=== PATIENT | female | born 1995 | race Asian ===

== ENCOUNTER 2023-10-29 07:12 | Outpatient (CLI) | payer OTHER, SELFPAY ==
--- NOTE | 2023-10-29 07:15 | CRLHL7_ITS ---
For Patients: As a result of the Century Cures Act, medical imaging exams and procedure reports are released immediately into your electronic medical record. You may view this report before your referring provider. If you have questions, please contact your health care provider. OB ULTRASOUND CLINICAL HISTORY: anatomy. STEFANIE by US: 03/14/2024. GA: 20 w, 3 d. FINDINGS: position: Breech. Cervix: Visualized. Technique: Transabdominal. Length of closed cervix: 3.7 cm. Placenta/cord: Posterior. Technique: Transabdominal. Placenta tip to internal OS: 3.5 cm. Umbilical Cord: 3-vessel cord. Placenta insertion: Central. Amniotic Fluid: 5.0 cm SDP (greater than/equal to: 2- less than 8 cm). SURVEY: Observed Structures Calvarium/Spine: Cerebellum: 2.0 cm, 20 w 0 d. Cisterna Magna: 4.7 mm. Nuchal Fold: 5.7 mm. Lateral Ventricle: 6.5 mm. CSP: Yes. Midline Falx: Yes. Choroid Plexus: Yes. Spine: Yes. Abdomen: Stomach: Yes. Abd Cord Insertion: Yes. Urinary Bladder: Yes. Kidneys: Yes. Diaphragm: Yes. Face: Nose/lips: Yes. Orbital view: Yes. Profile: Yes. Limbs: Upper Extremities: Yes. Lower Extremities: Yes. Hands: Yes. Feet: Yes. Vascular: Four-Chamber Heart: Yes. LVOT: Yes. RVOT: Yes. 3VV: Yes. 3VTV: Yes. BPD: 4.5 cm. 19 w 4 d, 17 percent. HC: 17.2 cm. 19 w 6 d, 17 percent. AC: 15.4 cm. 20 w 4 d, 49 percent. FL: 3.3 cm. 20 w 2 d, 35 percent. FL/AC: 21.31 percent. HC/AC Ratio: 1.12. Heart rate: 147 beats per minute. age by this US: 20 w, 0 d. STEFANIE by this US: 03/17/2024. EFW: 347.13 g. Weight: 12 oz. Percentile by STEFANIE: 40 percent. Left renal pelvis is mildly dilated measuring 4 mm. IMPRESSION: Single live intrauterine gestation. No gross anomaly is visualized. The left renal pelvis is mildly dilated measuring 4 mm. Ivania Mcginnis M.D. Diagnostic/Breast Radiologist [email or web address] ROSY/Dictated by: Ivania Mcginnis MD @ 10/30/2023 9:06:00 PM (Electronically Signed)
== END 2023-10-29 07:13 | disposition home or self-care (01) ==
PROVIDERS: Visit Provider Physician Assistant
DX: Z34.92 Encounter for supervision of normal pregnancy, unspecified, second trimester (principal); Z3A.20 20 weeks gestation of pregnancy
CPT/HCPCS: 76805

== ENCOUNTER 2023-12-31 08:45 | Outpatient (CLI) | payer OTHER, SELFPAY | END 2023-12-31 08:46 | disposition home or self-care (01) | LOC: NFLDREF 08:46 | PROVIDERS: Visit Provider Obstetrics & Gynecology | DX: Z34.92 Encounter for supervision of normal pregnancy, unspecified, second trimester (principal) | CPT/HCPCS: 86592; 86787 ==

== ENCOUNTER 2024-01-08 07:41 | Outpatient (CLI) | payer OTHER, SELFPAY | END 2024-01-08 07:42 | disposition home or self-care (01) | LOC: NFLDREF 01-09 11:14 | PROVIDERS: Visit Provider Obstetrics & Gynecology | DX: Z34.03 Encounter for supervision of normal first pregnancy, third trimester (principal) | CPT/HCPCS: 82951; 82952 ==

== ENCOUNTER 2024-01-21 09:22 | Outpatient (CLI) | payer OTHER, SELFPAY ==
--- NOTE | 2024-01-21 09:15 | US_ITS ---
Patient: JARED FONSECA Facility:?[facility] Patient ID:?[id number] Site Patient ID:?[id number]. Site :?[id number] Study:?US-OB Pelvis OB F/U LT RENAL PELVIS-01/21/2024 10:01:51 AM Ordering Physician:?EMMA SAGE M.D. Final Report: INDICATION: F/U mild left renal pelvis dilation COMPARISON: 10/29/2023 TECHNIQUE: Real-time hahn-scale imaging of the pelvis was performed. FINDINGS: Left renal pelvis measures 3.2 millimeters. position is zara breech. Normal amniotic fluid with single deepest pocket 4.5 cm. Posterior placenta. heart rate 142 beats per minute. IMPRESSION: Left renal pelvis measures 3.2 millimeters, considered normal. Dictated by Anthony Plata MD @ 01/22/2024 5:36:01 AM Signed by:?Anthony Plata MD @01/22/2024 5:36:01 AM (Electronic Signature)
== END 2024-01-21 09:23 | disposition home or self-care (01) ==
PROVIDERS: Visit Provider Obstetrics & Gynecology
DX: O35.EXX0 Maternal care for other (suspected) fetal abnormality and damage, fetal genitourinary anomalies, not applicable or unspecified (principal)
CPT/HCPCS: 76816

== ENCOUNTER 2024-02-18 09:45 | Outpatient (CLI) | payer OTHER, SELFPAY ==
--- OUTSIDE RECORDS SUMMARY | 2024-02-25 08:00 | XMS_ITS | Data Portability ---
Author Name Unknown Address [address] [place] [address] Phone [phone] Organization [facility] NURSING SERVICE DIRECTOR, [id number] Address [address] [address] Assessment Encounter Date Assessment Date Assessment LastModified [...] of subsequent test results to the patient [email or web address] Not available 07/31/2023 15:35:33 Plan of Treatment Reminders Order Date Submit Date Provider Last Modified By Organization Details Last Modified Time Details Appointments None recorded. Lab aneuploidy risk, chromosome specific circulating cell free (ccf) DNA, maternal serum [address], [address], [place], [address], 3 09:34:43 venipunctur e [email or web address], [address], [place], [address], 3 12:53:51 CT + NG DNA, PCR, unspecified specimen [address], [address], [place], [address], 3 13:40:44 CBC w/ diff 2022 [facility], [address], [address], [place], [address], 3 13:40:46 culture, urine 2022 [facility], [address], [address], [place], [address], 3 06:55:27 hepatitis C Ab, qual, IA, serum or plasma 2022 [facility], [address], [address], [place], [address], 13:40:42 mumps igg Ab, serum 2022 [facility], [address], [address], [place], [address], 3 06:55:26 HBsAg (hepatitis B surface Ag), serum 2022 [facility], [address], [address], [place], [address], 3 06:55:25 HIV 1+2 AB + HIV 1 p24 Ag, qualitative immunoassay , serum 2022 [facility], [address], [address], [place], [address], 3 12:12:19 type + screen, blood 2022 [facility], [address], [address], [place], [address], 3 12:12:20 RPR (rapid plasma reagin), serum 2022 [facility], [address] [facility] [address], [address], [place], [address], 12:12:18 Referral None recorded. Procedures None recorded. Surgeries None recorded. Imaging US, obstetric, 1st trimester 2022 [email or web address], [address], [place], [address], 16:04:11 Medication Orders Lexapro 20 mg tablet 2022 [email or web address] [id number], [address], [place], [address], 14:39:51 Patient TargetsNo targets recorded. Patient Instructions Encounter Date Encounter Id Patient Instructions Last Modified By Organization Details Last Modified Time 07/31/2023 [id number] Instructions: Avoid illicit drugs/ETOH Discussed Hospital and [...] reagin nonrea ctive nonrea ctive Not Available [address], [place], [address], 08/01/2023 12:12:18 07/31/20 23 07/31/2023 HIV ANTIG EN ANTIB KADEN COMBO CASCA DE HIV antigen antibody combo nonrea ctive nonrea ctive Not Available [address], [place], [address], 08/01/2023 12:12:19 07/31/20 23 07/31/2023 ABO RH TYPE AND SCREE N specimen expiration date [id number] 00 Not Available [address], [place], [address], 08/01/2023 12:12:20 07/31/20 23 07/31/2023 ABO RH TYPE AND SCREE N ABO Rh(D) O pos Not Available [address], [place], [address], 08/01/2023 12:12:20 07/31/20 23 07/31/2023 ABO RH TYPE AND SCREE N antibody screen negati ve negati ve Not Available [address], [place], [address], 08/01/2023 12:12:20 07/31/20 23 07/31/2023 HEPAT ITIS C ANTIB KADEN hepatitis C antibody nonrea ctive nonrea ctive Not Available [address], [place], [address], 08/01/2023 13:40:42 07/31/20 23 07/31/2023 GC/CH LAMYD IA BY PCR chlamydia trachomatis negati ve negati ve Not Available [address], [place], [address], 08/01/2023 13:40:44 07/31/20 23 07/31/2023 GC/CH LAMYD IA BY PCR neisseria gonorrhoeae negati ve negati ve Not Available [address], [place], [address], 08/01/2023 13:40:44 07/31/2007/31/2023 CBC WITH PLATE LETS WBC count 14.2 10e3/ uL 4.0-11 .0 high Not Available [address], [place], [address], 08/01/2023 13:40:45 07/31/20 23 07/31/2023 CBC WITH PLATE LETS RBC count 4.75 10e6/ uL 3.80-5 .20 Not Available [address], [place], [address], 08/01/2023 13:40:45 07/31/2007/31/2023 CBC WITH PLATE LETS hemoglobin 13.9 g/dL 11.7-1 5.7 Not Available [address], [place], [address], 08/01/2023 13:40:45 07/31/2007/31/2023 CBC WITH PLATE LETS hematocrit 41.5 % 35.0-4 7.0 Not Available [address], [place], [address], 08/01/2023 13:40:45 07/31/2007/31/2023 CBC WITH PLATE LETS MCV 87 fL 78-100 Not Available [address], [place], [address], 08/01/2023 13:40:45 07/31/20 23 07/31/2023 CBC WITH PLATE LETS MCH 29.3 pg 26.5-3 3.0 Not Available [address], [place], [address], 08/01/2023 13:40:45 07/31/20 23 07/31/2023 CBC WITH PLATE LETS MCHC 33.5 g/dL 31.5-3 6.5 Not Available [address], [place], [address], 08/01/2023 13:40:45 07/31/20 23 07/31/2023 CBC WITH PLATE LETS RDW 12.9 % 10.0-1 5.0 Not Available [address], [place], [address], 08/01/2023 13:40:45 07/31/2007/31/2023 CBC WITH PLATE LETS platelet count 335 10e3/ uL 150-45 0 Not Available [address], [place], [address], 08/01/2023 13:40:45 07/31/2007/31/2023 CBC WITH PLATE LETS % neutrophils 70 % Not Available [address], [place], [address], 08/01/2023 13:40:45 07/31/2007/31/2023 CBC WITH PLATE LETS % lymphocytes 24 % Not Available [address], [place], [address], 08/01/2023 13:40:45 07/31/2007/31/2023 CBC WITH PLATE LETS % monocytes 5 % Not Available [address], [place], [address], 08/01/2023 13:40:45 07/31/2007/31/2023 CBC WITH PLATE LETS mids % (monos, eos, basos) Not Available [address], [place], [address], 08/01/2023 13:40:45 07/31/2007/31/2023 CBC WITH PLATE LETS % eosinophils 0 % Not Available [address], [place], [address], 08/01/2023 13:40:45 07/31/20 23 07/31/2023 CBC WITH PLATE LETS % basophils 1 % Not Available [address], [place], [address], 08/01/2023 13:40:45 07/31/20 23 07/31/2023 CBC WITH PLATE LETS % immature granulocytes 0 % Not Available [address], [place], [address], 08/01/2023 13:40:45 07/31/20 23 07/31/2023 CBC WITH PLATE LETS NRBCs per 100 WBC 0 /100 <1 Not Available [address], [place], [address], 08/01/2023 13:40:45 07/31/20 23 07/31/2023 CBC WITH PLATE LETS absolute neutrophils 10.0 10e3/ uL 1.6-8. 3 high Not Available [address], [place], [address], 08/01/2023 13:40:45 07/31/20 23 07/31/2023 CBC WITH PLATE LETS absolute lymphocytes 3.5 10e3/ uL 0.8-5. 3 Not Available [address], [place], [address], 08/01/2023 13:40:45 07/31/20 23 07/31/2023 CBC WITH PLATE LETS absolute monocytes 0.7 10e3/ uL 0.0-1. 3 Not Available [address], [place], [address], 08/01/2023 13:40:45 07/31/20 23 07/31/2023 CBC WITH PLATE LETS mids absolute (monos, eos, basos) Not Available [address], [place], [address], 08/01/2023 13:40:45 07/31/20 23 07/31/2023 CBC WITH PLATE LETS absolute eosinophils 0.0 10e3/ uL 0.0-0. 7 Not Available [address], [place], [address], 08/01/2023 13:40:45 07/31/20 23 07/31/2023 CBC WITH PLATE LETS absolute basophils 0.1 10e3/ uL 0.0-0. 2 Not Available [address], [place], [address], 08/01/2023 13:40:45 07/31/20 23 07/31/2023 CBC WITH PLATE LETS absolute immature granulocytes 0.0 10e3/ uL <=0.4 Not Available [address], [place], [address], 08/01/2023 13:40:45 07/31/20 23 07/31/2023 CBC WITH PLATE LETS absolute NRBCs 0.0 10e3/ uL Not Available [address], [place], [address], 08/01/2023 13:40:45 07/31/20 23 07/31/2023 HEPAT ITIS B SURFA CE ANTIG EN hepatitis B surface antigen nonrea ctive nonrea ctive Not Available [address], [place], [address], 08/02/2023 06:55:25 07/31/20 23 07/31/2023 RUBEL LA ANTIB KADEN IGG QUANT rubella antibody IgG quant 9.56 index <0.90 Not Available [address], [place], [address], 08/02/2023 06:55:26 07/31/20 23 07/31/2023 RUBEL LA ANTIB KADEN IGG QUANT rubella antibody IgG positi ve Not Available [facility] [address] [facility] [address], [place], [address], 08/02/2023 06:55:26 07/31/20 23 07/31/2023 URINE CULTU RE urine culture see result s below Not Available [facility] [address] [facility] [address], [place], [address], 08/02/2023 06:55:27 07/31/20 23 07/31/2023 US, obste tric, 1st trime ster No observ ation record ed. [email or web address] Maria Del Rosario [address], [place], [address], 08/02/2023 11:30:55 Result Notes None recorded. Problems Name Status Onset Date Resolution Date Notes Provider Name and Address Organization Details Recorded Time Completed 023 10/30/2023 Tayler Greenfiel d null, [place] - [facility] NURSING SERV[facility] DIRECT[facility] 4 10:32:39 Administration of influenza vaccine Completed 023 Tayler Greenfiel d null, [place] - [facility]SING SERV[facility] DIRECT[facility] 4 10:32:35 Generalized anxiety disorder Completed stable on lexapro Tayler Greenfiel d null, [place] - [facility]URSING SERVICE DIRECT[facility] 4 10:32:35 Problem Notes None recorded. Procedures Surgical History Date Name Laterality Status Provider Name and Address Organization Details Recorded Time 3 extraction of wisdom tooth completed Belen Pond null, [place] - [facility] NURSING SERVICE DIRECTOR 07/31/2023 14:08:03 Imaging Results Imaging Date Name Status LastModified by Organiz ation Details LastModified Time 07/31/2023 US, obstetric, 1st trimester completed [email or web address] Maria Del [address]ario [address], [place], [address], 08/02/2023 11:30:55 Procedure Notes None recorded. Medical [...] Address Organization Details Last Updated DateTime 07/31/2023 83280.41 573 g 20.8 kg/m2 167.64 cm 102 mm[Hg] 60 mm[Hg] Belenyamile Butchergoldy [facility] 14:19:02 Date Recorded Body weight Systolic blood pressure Diastolic blood pressure Provider Name and Address Organization Details Last Updated DateTime 08/20/2023 53529.4157 3 g 108 mm[Hg] 70 mm[Hg] [facility] 08/20/2023 11:05:25 Date Recorded Body weight Systolic blood pressure Diastolic blood pressure Provider Name and Address Organization Details Last Updated DateTime 09/17/2023 05684.3189 44 g 100 mm[Hg] 72 mm[Hg] [facility] 09/17/2023 11:13:04 Social History Question Answer Notes [...] preservative free, quadrivalent 07/31/2023 completed KELVIN CALVILLO- [address] [facility],[address], [place], [address], [facility] NURSING SERVICE DIRECTOR 07/31/2023 15:30:45 Past Encounters Encounter ID Performer Location Encounter Start Date Encounter Closed Date Diagnosis/Indication Diagnosis SNOMED-CT Code [id number] HERNAN PINTO MD [id number] [facility] [address] [facility], [address] [place] [address] 07/31/2023 13:22:22 07/31/2023 14:04:18 Finding of viability of [id number] Gestation period, 7 weeks 15416732 [id number] NELIA DE LA PAZ RAYNA- [id number] [facility] [address] [facility], [address] [place] [address] 07/31/2023 14:03:20 07/31/2023 15:45:03 Routine care 636391267 Generalize d anxiety disorder 15354967 Intrauteri ne 04678272 Administra tion of influenza vaccine [id number] [place] RAYNA [id number] [facility] [address] [facility], [address] [address] 08/20/2023 10:55:35 08/20/2023 11:35:15 Gestation period, 10 weeks 95259895 screening [id number] [id number] [address] [facility], [address] [address] 09/17/2023 10:54:08 09/17/2023 11:26:26 Gestation period, 14 weeks 69613056 Health Concerns Section Related Observation LastModified by Organization Detai ls LastModified Time None Recorded Concern Status LastModified by Organization Details LastModified Time None Recorded Advance Directives Directive None Recorded Payers Encounter Date Sequence Insurance Name Policy Number Policy Marie Covered Member ID Marie Member ID Guarantor Name 09/17/2023 1 PREFERREDONE (PPO) [id number] [employer] [id number] Josselin Pride 08/20/2023 1 PREFERREDONE (PPO) [id number] [employer] [id number] Josselin Pride 07/31/2023 1 PREFERREDONE (PPO) [id number] [employer] [id number] Josselin Pride 07/31/2023 1 PREFERREDONE (PPO) [id number] [employer] [id number] Josselin Villagomez Pride Notes Date Note Type [...] is based on her ultrasound. She is 3epl1lyhk gestation today. Since her LMP she has [...] discussed with patient. NELIA DE LA PAZ, [facility] [address] [facility],[address], [place], [address], [place] - [facility] NURSING SERVICE DIRECTOR 07/31/2023 15:40:08 OBGyn Episode Ob Episode Information Episode Created Date Number of Fetuses Patient Bloodtype Patient rh Status Prepregnancy Weight lbs Domestic Partner Domestic Partner Phone Father Name Probation Officer Status 07/31/20 23 1 O Positive 129 Mele Camacho CLOSED Fetus Data First Name Last Name Admitted to NICU Weight (g) Sex Living Outcome Pediatric Complications Fetus ID Race Codes Race Delivery Type [id number] Problems Problem Notes unsure LMP, dated by ultraso undspouse is ED physicianflu shot done, covid booster discussed Problem Name Start Date End Date Resolution Snomed Code Not e Administration of influenza vaccine 07/31/2023 [id number] Generalized anxiety disorder 40862603 stable on lexap ro Heriberto Calculation Initial [...] Date Ultra Sound Latest Days Gestation 0 [email or web address] 07/31/2023 03/13/20 24 0 Pre-paddy Flowsheet Flowsheet [...] And Infection History Question Response Note Thalassemia (Estonian, Northern Irish, Mediterranean, Or Background): MCV < 80 false [...] 1 Diabetes , PKU) false Kareem-Sachs (eg, Sabianism, Cajun, Uzbek-[place]) f alse Other Infection History false Villalba's Chorea false Cystic Fibrosis false Recurrent Loss, [...] Comments Patient transferr ed on 10/19/23 to [facility] Billed Antepartu m visits per guideline s. Discharge Information Feeding Method Contraceptive Method Maternal HG B and HCT Levels
== END 2024-02-18 09:46 | disposition home or self-care (01) ==
LOC: NFLDREF 02-25 07:58
PROVIDERS: Visit Provider Obstetrics & Gynecology
DX: Z34.93 Encounter for supervision of normal pregnancy, unspecified, third trimester (principal)
CPT/HCPCS: 87081; 87653

== ENCOUNTER 2024-02-21 08:20 | Outpatient (CLI) | payer OTHER, SELFPAY ==
[2024-02-21] VITALS (7 sets, daily range): PULSE 74–94; TEMP 36.6; O2SAT 100
--- OUTSIDE RECORDS SUMMARY | 2024-02-21 08:23 | XMS_ITS | Data Portability ---
Author Name Unknown Address [address] [place] [address] Phone [phone] Organization [facility] [employer]IVER, [id number] Address [address] [address] Assessment Encounter Date Assessment Date Assessment LastModified by Organization Details LastModified Time 07/31/2023 07/31/2023 I spent a total of 35 minutes providing care for this patient including: preparing to see the patient, obtaining a medical history, completing a medically appropriate physical exam, completing documentation of visit information and plans in the EMR, counseling the patient and/or caregiver regarding her diagnosis, treatment options and follow up plans, as well as any necessary communication of subsequent test results to the patient [email or web address] Not available 07/31/2023 15:35:33 Plan of Treatment Reminders Order Date Submit Date Provider Last Modified By Organization Details Last Modified Time Details Appointments None recorded. Lab aneuploidy risk, chromosome specific circulating cell free (ccf) DNA, maternal serum [address], [address], [place], [address], 3 09:34:43 venipunctur e [email or web address], [address], [place], [address], 3 12:53:51 CT + NG DNA, PCR, unspecified specimen [address], [address], [place], [address], 3 13:40:44 CBC w/ diff 2022 [facility], [address], [address], [place], [address], 3 13:40:46 culture, urine 2022 [facility], [address], [address], [place], [address], 3 06:55:27 hepatitis C Ab, qual, IA, serum or plasma 2022 [facility], [address], [address], [place], [address], 13:40:42 mumps igg Ab, serum 2022 [facility], [address], [address], [place], [address], 3 06:55:26 HBsAg (hepatitis B surface Ag), serum 2022 [facility], [address], [address], [place], [address], 3 06:55:25 HIV 1+2 AB + HIV 1 p24 Ag, qualitative immunoassay , serum 2022 [facility], [address], [address], [place], [address], 3 12:12:19 type + screen, blood 2022 [facility], [address], [address], [place], [address], 3 12:12:20 RPR (rapid plasma reagin), serum 2022 [facility], [address], [address], [place], [address], 12:12:18 Referral None recorded. Procedures None recorded. Surgeries None recorded. Imaging US, obstetric, 1st trimester 2022 [email or web address] [id number] [facility], [address], [address], [place], [address], 16:04:11 Medication Orders Lexapro 20 mg tablet 2022 [email or web address] [id number], [address], [place], [address], 14:39:51 Patient TargetsNo targets recorded. Patient Instructions Encounter Date Encounter Id Patient Instructions Last Modified By Organization Details Last Modified Time 07/31/2023 [id number] Instructions: Avoid illicit drugs/ETOH Discussed Hospital and Clinic practice style, provider options and coverage during and after Clinic hours and routine appt intervals. packet and gestational age appropriate pt education materials were provided and discussed. Bleeding, pain and complications of were discussed. Discussed diagnostic and screening tests with patient per ACOG guidelines appropriate for age and history - including genetic consult, Amniocentesis, CVS, NIPT, First trimester screen, Quad screen, AFP, Level II US or anatomy US, and Carrier screening. Reviewed all current prescription drug use. Discontinue the use of all non-medicinal drugs and chemicals. Encouraged breast feeding. Nausea and vomiting of was discussed. Patient informed that she and her partner should not travel to Zika infected areas. Referred to www.cdc.gov for up to date recommendations. Return OB visit in 2-4 weeks as instructed. See additional documentation for today's visit in OB Episode. Not available 07/31/2023 14:15:24 Reason for Referral None Reported. Results Created Date Observation Date Name Description Value Unit Range Abnormal Flag LastModifiedBy Organization Detail LastModifiedTime 07/31/20 23 07/31/2023 RAPID PLASM A REAGI N WITH REFLE X TO TITER AND TREPO NEMA ABS rapid plasma reagin nonrea ctive nonrea ctive Not Available [address], [place], [address], 08/01/2023 12:12:18 07/31/20 23 07/31/2023 HIV ANTIG EN ANTIB KADEN COMBO CASCA DE HIV antigen antibody combo nonrea ctive nonrea ctive Not Available [address], [place], [address], 08/01/2023 12:12:19 07/31/20 23 07/31/2023 ABO RH TYPE AND SCREE N specimen expiration date [id number] 00 Not Available [address], [place], [address], 08/01/2023 12:12:20 07/31/20 23 07/31/2023 ABO RH TYPE AND SCREE N ABO Rh(D) O pos Not Available [address], [place], [address], 08/01/2023 12:12:20 07/31/20 23 07/31/2023 ABO RH TYPE AND SCREE N antibody screen negati ve negati ve Not Available [address], [place], [address], 08/01/2023 12:12:20 07/31/20 23 07/31/2023 HEPAT ITIS C ANTIB KADEN hepatitis C antibody nonrea ctive nonrea ctive Not Available [address], [place], [address], 08/01/2023 13:40:42 07/31/20 23 07/31/2023 GC/CH LAMYD IA BY PCR chlamydia trachomatis negati ve negati ve Not Available [address], [place], [address], 08/01/2023 13:40:44 07/31/20 23 07/31/2023 GC/CH LAMYD IA BY PCR neisseria gonorrhoeae negati ve negati ve Not Available [address], [place], [address], 08/01/2023 13:40:44 07/31/2007/31/2023 CBC WITH PLATE LETS WBC count 14.2 10e3/ uL 4.0-11 .0 high Not Available [address], [place], [address], 08/01/2023 13:40:45 07/31/20 23 07/31/2023 CBC WITH PLATE LETS RBC count 4.75 10e6/ uL 3.80-5 .20 Not Available [address], [place], [address], 08/01/2023 13:40:45 07/31/2007/31/2023 CBC WITH PLATE LETS hemoglobin 13.9 g/dL 11.7-1 5.7 Not Available [address], [place], [address], 08/01/2023 13:40:45 07/31/2007/31/2023 CBC WITH PLATE LETS hematocrit 41.5 % 35.0-4 7.0 Not Available [address], [place], [address], 08/01/2023 13:40:45 07/31/2007/31/2023 CBC WITH PLATE LETS MCV 87 fL 78-100 Not Available [address], [place], [address], 08/01/2023 13:40:45 07/31/20 23 07/31/2023 CBC WITH PLATE LETS MCH 29.3 pg 26.5-3 3.0 Not Available [address], [place], [address], 08/01/2023 13:40:45 07/31/20 23 07/31/2023 CBC WITH PLATE LETS MCHC 33.5 g/dL 31.5-3 6.5 Not Available [address], [place], [address], 08/01/2023 13:40:45 07/31/20 23 07/31/2023 CBC WITH PLATE LETS RDW 12.9 % 10.0-1 5.0 Not Available [address], [place], [address], 08/01/2023 13:40:45 07/31/2007/31/2023 CBC WITH PLATE LETS platelet count 335 10e3/ uL 150-45 0 Not Available [address], [place], [address], 08/01/2023 13:40:45 07/31/2007/31/2023 CBC WITH PLATE LETS % neutrophils 70 % Not Available [address], [place], [address], 08/01/2023 13:40:45 07/31/2007/31/2023 CBC WITH PLATE LETS % lymphocytes 24 % Not Available [address], [place], [address], 08/01/2023 13:40:45 07/31/2007/31/2023 CBC WITH PLATE LETS % monocytes 5 % Not Available [address], [place], [address], 08/01/2023 13:40:45 07/31/2007/31/2023 CBC WITH PLATE LETS mids % (monos, eos, basos) Not Available [address], [place], [address], 08/01/2023 13:40:45 07/31/2007/31/2023 CBC WITH PLATE LETS % eosinophils 0 % Not Available [address], [place], [address], 08/01/2023 13:40:45 07/31/20 23 07/31/2023 CBC WITH PLATE LETS % basophils 1 % Not Available [address], [place], [address], 08/01/2023 13:40:45 07/31/20 23 07/31/2023 CBC WITH PLATE LETS % immature granulocytes 0 % Not Available [address], [place], [address], 08/01/2023 13:40:45 07/31/20 23 07/31/2023 CBC WITH PLATE LETS NRBCs per 100 WBC 0 /100 <1 Not Available [address], [place], [address], 08/01/2023 13:40:45 07/31/20 23 07/31/2023 CBC WITH PLATE LETS absolute neutrophils 10.0 10e3/ uL 1.6-8. 3 high Not Available [address], [place], [address], 08/01/2023 13:40:45 07/31/20 23 07/31/2023 CBC WITH PLATE LETS absolute lymphocytes 3.5 10e3/ uL 0.8-5. 3 Not Available [address], [place], [address], 08/01/2023 13:40:45 07/31/20 23 07/31/2023 CBC WITH PLATE LETS absolute monocytes 0.7 10e3/ uL 0.0-1. 3 Not Available [address], [place], [address], 08/01/2023 13:40:45 07/31/20 23 07/31/2023 CBC WITH PLATE LETS mids absolute (monos, eos, basos) Not Available [address], [place], [address], 08/01/2023 13:40:45 07/31/20 23 07/31/2023 CBC WITH PLATE LETS absolute eosinophils 0.0 10e3/ uL 0.0-0. 7 Not Available [address], [place], [address], 08/01/2023 13:40:45 07/31/20 23 07/31/2023 CBC WITH PLATE LETS absolute basophils 0.1 10e3/ uL 0.0-0. 2 Not Available [address], [place], [address], 08/01/2023 13:40:45 07/31/20 23 07/31/2023 CBC WITH PLATE LETS absolute immature granulocytes 0.0 10e3/ uL <=0.4 Not Available [address], [place], [address], 08/01/2023 13:40:45 07/31/20 23 07/31/2023 CBC WITH PLATE LETS absolute NRBCs 0.0 10e3/ uL Not Available [address], [place], [address], 08/01/2023 13:40:45 07/31/20 23 07/31/2023 HEPAT ITIS B SURFA CE ANTIG EN hepatitis B surface antigen nonrea ctive nonrea ctive Not Available [address], [place], [address], 08/02/2023 06:55:25 07/31/20 23 07/31/2023 RUBEL LA ANTIB KADEN IGG QUANT rubella antibody IgG quant 9.56 index <0.90 Not Available [address], [place], [address], 08/02/2023 06:55:26 07/31/20 23 07/31/2023 RUBEL LA ANTIB KADEN IGG QUANT rubella antibody IgG positi ve Not Available [facility] [address] [facility] [facility] [address], [place], [address], 08/02/2023 06:55:26 07/31/20 23 07/31/2023 URINE CULTU RE urine culture see result s below Not Available [facility] [address], [place], [address], 08/02/2023 06:55:27 07/31/20 23 07/31/2023 US, obste tric, 1st trime ster No observ ation record ed. [email or web address] Maria Del [address], [place], [address], 08/02/2023 11:30:55 Result Notes None recorded. Problems Name Status Onset Date Resolution Date Notes Provider Name and Address Organization Details Recorded Time Completed 023 10/30/2023 Tayler Greenfiel d null, [place] - [facility] [employer] 4 10:32:39 Administration of influenza vaccine Completed 023 Tayler Greenfiel d null, [place] - [facility] [employer] 4 10:32:35 Generalized anxiety disorder Completed stable on lexapro Tayler Greenfiel d null, [place] - [facility] [employer] 4 10:32:35 Problem Notes None recorded. Procedures Surgical History Date Name Laterality Status Provider Name and Address Organization Details Recorded Time 3 extraction of wisdom tooth completed Belen Pond null, [place] - [facility] [employer] 07/31/2023 14:08:03 Imaging Results Imaging Date Name Status LastModified by Organiz ation Details LastModified Time 07/31/2023 US, obstetric, 1st trimester completed [email or web address] Maria [address], [place], [address], 08/02/2023 11:30:55 Procedure Notes None recorded. Medical Equipment None Reported. Allergies No known drug allergies Medications Name Sig Start Date Stop Date Status Note LastModified by Organization Details LastModified Time escitalopram 20 mg tablet Take 1 tablet every day by oral route. active Not Available Not Available No t Available Vitamin active Not Available Not Available Not Available Vitals Date Recorded Body weight Body mass index (BMI) Body height Systolic blood pressure Diastolic blood pressure Provider Name and Address Organization Details Last Updated DateTime 07/31/2023 08189.41 573 g 20.8 kg/m2 167.64 cm 102 mm[Hg] 60 mm[Hg] Belenyamile Butchergoldy ziegler [facility] [employer] 14:19:02 Date Recorded Body weight Systolic blood pressure Diastolic blood pressure Provider Name and Address Organization Details Last Updated DateTime 08/20/2023 47289.4157 3 g 108 mm[Hg] 70 mm[Hg] Sherita ziegler [facility] [employer] 08/20/2023 11:05:25 Date Recorded Body weight Systolic blood pressure Diastolic blood pressure Provider Name and Address Organization Details Last Updated DateTime 09/17/2023 28385.3189 44 g 100 mm[Hg] 72 mm[Hg] Sherita ziegler [facility] [employer] 09/17/2023 11:13:04 Social History Question Answer Notes LastModified by Organizat ion Details LastModified Time What Is Your Relationship Status? Information not available 07/31/2023 Sex: Female Functional Status None recorded. Mental Status None recorded. Family History Relationship Description Onset Age of this Age Resolved Age Notes Paternal Grandfather Malignant neoplastic disease Unsure of type Medical History No medical history recorded. Gynecological History Statement/Question Response Date of Last Pap Smear Age at Menarche: 11 Date of LMP 06/06/2023 Obstetrics History GPAL:G 1 P 0 0 0 0 Immunizations Vaccine Type Date Status Provider Name and Address Organization Details Recorded Time Influenza, injectable, MDCK, preservative free, quadrivalent 07/31/2023 completed KELVIN CALVILLO- [address] [facility],[address], [place], [address], [facility] PUBLIC [employer]IVER 07/31/2023 15:30:45 Past Encounters Encounter ID Performer Location Encounter Start Date Encounter Closed Date Diagnosis/Indication Diagnosis SNOMED-CT Code [id number] HERNAN PINTO MD [id number] [facility] [address] [facility], [address] [place] [address] 07/31/2023 13:22:22 07/31/2023 14:04:18 Finding of viability of [id number] Gestation period, 7 weeks [id number] NELIA DE LA PAZ RAYNA- [id number] [facility] [address] [facility], [address] [place] [address] 07/31/2023 14:03:20 07/31/2023 15:45:03 Routine care 262940355 Generalize d anxiety disorder 19677528 Intrauteri ne 97647057 Administra tion of influenza vaccine [id number] MALCOLM [place] RAYNA [id number] [facility] [address] [facility], [address] [address] 08/20/2023 10:55:35 08/20/2023 11:35:15 Gestation period, 10 weeks 69189474 screening 2433 12780 [id number] [id number] [address] [facility], [address] [address] 09/17/2023 10:54:08 09/17/2023 11:26:26 Gestation period, 14 weeks 26348900 Health Concerns Section Related Observation LastModified by Organization Detai ls LastModified Time None Recorded Concern Status LastModified by Organization Details LastModified Time None Recorded Advance Directives Directive None Recorded Payers Encounter Date Sequence Insurance Name Policy Number Policy Marie Covered Member ID Marie Member ID Guarantor Name 09/17/2023 1 PREFERREDONE (PPO) [id number] [employer] [id number] Josselin Pride 08/20/2023 1 PREFERREDONE (PPO) [id number] [employer] [id number] Josselin Pride 07/31/2023 1 PREFERREDONE (PPO) [id number] [employer] [id number] Josselin Pride 07/31/2023 1 PREFERREDONE (PPO) [id number] [employer] [id number] Josselin Villagomez Pride Notes Date Note Type Note Provider Name and Address Organization Details Recorded Time 07/31/2023 text/html HPI Notes: New O B Visit This 28 year old with an unsure LMP presents in her first trimester for care. History Since LMP Her last menstrual period was unsure. She reports that her cycles are monthly. Her EDC of 03/13/2024 is based on her ultrasound. She is [id number] gestation today. Since her LMP she has been without significant complaints. She denies emesis, vaginal bleeding and pelvic pain. She denies vaginal itching/burning. In the past 6 months the patient has not traveled to an area affected by Zika, malaria, or TB. Her depression screening PHQ-9 Score was 1 and JOANA-7 was 2. Past Medical History The patient is current on pap smear. Her most recent pap was within the last three years. and was normal. per patient's report. She does not have a history of cryotherapy, LEEP or conization. Her past medical history is non-contributory. History This is her first . Patient is not a candidate for early 1hr GTT. Patient is not a candidate for baby ASA starting at 12 weeks. Patient is interested in aneuploidy screening. Patient may be interested in genetic screening. Social History Since her LMP, she denies the use of alcohol, tobacco, and street drugs. She denies exposure to second had smoke. She reports exercising 2-3x/week. Pt reports caffeine use. The patient feels safe at home. If blood products are required, patient will accept treatment. RIsks/benefits of accepting or declining treatment discussed with patient. NELIA DE LA PAZ, [facility] [address] [facility],[address], [place], [address], [place] - [facility] [employer] 07/31/2023 15:40:08 OBGyn Episode Ob Episode Information Episode Created Date Number of Fetuses Patient Bloodtype Patient rh Status Prepregnancy Weight lbs Domestic Partner Domestic Partner Phone Father Name Manager Rail Status 07/31/20 23 1 O Positive 129 Mele Camacho CLOSED Fetus Data First Name Last Name Admitted to NICU Weight (g) Sex Living Outcome Pediatric Complications Fetus ID Race Codes Race Delivery Type [id number] Problems Problem Notes unsure LMP, dated by ultraso undspouse is ED physicianflu shot done, covid booster discussed Problem Name Start Date End Date Resolution Snomed Code Not e Administration of influenza vaccine 07/31/2023 [id number] Generalized anxiety disorder 62201605 stable on lexap ro Heriberto Calculation Initial Heriberto Date Initial Exam Date Initial Exam Provider Initial Ultrasound Date Last Menstrual Period Date Ultra Sound Weeks Gestation 03/12/2024 07/31/2023 06/06/2023 0 Eighteen To Twenty Week Heriberto Update Ultra Sound Date Fundal Height At Umbil Quickening Date Ultra Sound Latest Weeks Gestation Final Heriberto Confirmed By Final Heriberto Confirmed Date Final Heriberto Date Ultra Sound Latest Days Gestation 0 [email or web address] 07/31/2023 03/13/20 24 0 Pre-paddy Flowsheet Flowsheet Date 07/31/2023 Man Score Blood Edema Fundus Height Fundus Units Glucose Ketones Leukocytes Nitrite Labor Signs Protein Cervic Dilation Cervic Effacement Cervic Station Type Weight in lbs BP Diastolic BP Location Tested BP Systolic BP Type Fetus Heart Rate Present Fetus Movement Comments Flowsheet Date 07/31/2023 Man Score Blood Edema Fundus Height Fundus Units Glucose Ketones Leukocytes Nitrite Labor Signs Protein Cervic Dilation Cervic Effacement Cervic Station none neg Type Weight in lbs BP Diastolic BP Location Tested BP Systolic BP Type 60 R arm 102 sitting Fetus Heart Rate Present Fetus Movement Comments New pt, NOB. Unsure LMP, kno ws it was sometime the week prior to their wedding on 06/09. D/w LK, will use u/s dating. Feeling well, no VB, N/V. Some fatigue. Folder reviewed. Pap current. Plan MT21. Flu shot today. Flowsheet Date 08/20/2023 Man Score Blood Edema Fundus Height Fundus Units Glucose Ketones Leukocytes Nitrite Labor Signs Protein Cervic Dilation Cervic Effacement Cervic Station none none neg Type Weight in lbs BP Diastolic BP Location Tested BP Systolic BP Type 70 108 Fetus Heart Rate Present A Present Fetus Movement Comments 1. reviewed NOB labs. 2. hernando ires MT21, counseling done and drawn. When to expect results disucssed. 3. struggling with some constipation, miralax and dietary choices reviewed. 4. Denies VB/LOF/ctxn. Precautions reviewed, next visit 4 weeks. lw Flowsheet Date 09/17/2023 Man Score Blood Edema Fundus Height Fundus Units Glucose Ketones Leukocytes Nitrite Labor Signs Protein Cervic Dilation Cervic Effacement Cervic Station none none neg Type Weight in lbs BP Diastolic BP Location Tested BP Systolic BP Type 72 100 Fetus Heart Rate Present A Present Fetus Movement Comments 1. feeling well, no concerns . 2. flu shot done, has not had covid booster yet - discussed. 3. reviewed MT21 results. 4. denies VB/LOF/ctxn. okay for visit in 3 weeks for FHT check or 6 weeks w/ allison scan. Precautions reviewed. lw Menstrual History Last Menstrual Date Menses Monthly On Bcp Conception Prior Menses Frequency Hcg Plus Date Menarche Onset Age 0806/06/2023 Genetic Screening And Infection History Question Response Note Thalassemia (Occitan, Botswanan, Mediterranean, Or Background): MCV < 80 false Intellectual Disability/Autism false History of HIV false Congenital Heart Defect false Muscular Dystrophy false Sickle Cell Disease Or Trait () false Patient Or Partner Has History Of Genital Herpes false Hemophilia Or Other Blood Disorders false Riley Disease false Patient's Age Will Be 35 Years Or Older At Estim ated Date of Delivery false Maternal Metabolic Disorder (eg, Type 1 Diabetes , PKU) false Kareem-Sachs (eg, Episcopal, Cajun, Mongolian-Kossuth) f alse Other Infection History false [place]'s Chorea false Cystic Fibrosis false Recurrent Loss, Or A Stillbirth false Rash Or Viral Illness Since Last Menstrual Perio d false Live With Someone With TB Or Exposed To TB false If Yes, Was Person Tested For Fragile X? false Prior GBS-infected child false Any Other Genetic History false Previous Hemoglobinopathy Evaluation false History of Hepatitis false Down Syndrome false Other Inherited Genetic Or Chromosomal Disorder false Previous Carrier Screening Test false Patient Or Baby's Father Had A Child With Defects Not Listed Above false Neural Tube Defect (Meningomyelocele, Spina Bifi da, Or Anencephaly) false History Of STD, Gonorrhea, Chlamydia, HPV, Syphi lis false Delivery Information Delivery Date Delivery Type Labor Anesthesia Weeks Gestation Incision Type Labor Labor Length Hrs Delivered By Post Complications Tubal Sterilization Discharge Date Comments Patient transferr ed on 10/19/23 to [facility] Billed Antepartu m visits per guideline s. Discharge Information Feeding Method Contraceptive Method Maternal HG B and HCT Levels
[2024-02-21] MEDS: TERBUTALINE 1 MG/ML INJ 0.25 MG SUBCUT (09:30)
[2024-02-21] MEDS: LACTATED RINGERS 500 ML 500 ML IV (09:47)
--- NOTE | 2024-02-21 11:43 | PM.PROC ---
Procedure Note Time Seen by Provider: 09:00 Date Seen: 02/21/24 Date of procedure: 02/21/24 Will [facility] bill your pro fee for this procedure?: Yes Procedure: I discussed with patient that 3-4% of pregnancies are breech at term.? If there is a concern in for malpresentation, we assessed with ultrasound at 36 weeks.? If the fetus continues to be breech at 36 weeks, she has the option of attempting an external cephalic version at 37 weeks.? We discussed the rationale for doing the procedure at 37 weeks (technically feasible, fetus is term should delivery be indicated, and lower risk of reversion). Contraindication to external cephalic version is anything that is a contraindication to vaginal delivery such as a placenta previa, multiple previous CD etc. Patient doesn?t have any contraindications. The benefit of an external cephalic version is fewer delivery. It is important to know that there is no difference for low APGARs, low umbilical vein pH, and when comparing external cephalic version with subsequent vaginal delivery to planned delivery at term. The risks of external cephalic version: heart rate changes (most common in stabilizes when procedure is discontinued). ?Overall, serious adverse effects are very low, all < 1%.? These include placental abruption, umbilical cord prolapse, rupture of membranes, stillbirth, maternal hemorrhage.? The risk of an emergency delivery is also low. We discussed factors affecting success.? The overall success rate quoted in the literature is 58%.? Factors that her favorable towards a successful external cephalic version are increased parity, transverse or oblique presentation, normal amniotic volume, normal maternal BMI, and posterior placental location. Factors more associated with failure is nulliparity, advanced dilation, weight less than 2500g, anterior placenta, and low station. She will be given terbutaline for tocolysis prior to the procedure.? We discussed that terbutaline has doubled the rate of ECV success.? With regards to anesthesia, neuraxial anesthesia is available to her should she desire. I will be performing an ultrasound prior to the ECV to confirm positioning.? Additionally, if we are to proceed with the external cephalic version we will get a reactive NST prior to proceeding.? During the procedure intermittent ultrasonography will be used to assess for status.? If there is any concern for or maternal well being the procedure will be terminated immediately. After the procedure, regardless of success or not, she and fetus will be monitored for at least 30 minute prior to discharge. Patient does not require RhoGAM as she is Rh positive. Procedure: External cephalic version Procedure Description: PREOPERATIVE DIAGNOSIS: 1. Intrauterine at 37 weeks gestation. 2. Breech presentation. POSTOPERATIVE DIAGNOSIS: 1. Intrauterine at 37 weeks gestation. 2. Breech presentation. Unsuccessful ECV PROCEDURE: 1. Nonstress test. 2. Limited OB ultrasound. 3. External cephalic version. SURGEON: MD Robi [employer] HAND: MD Holly ANESTHESIA: None. COMPLICATIONS: None. FINDINGS: Nonstress test: heart rate baseline 140s beats per minute, moderate variability, 15 x 15 accelerations present, no decelerations, category 1. Limited OB ultrasound: Single, living, intrauterine gestation in a zara breech presentation with the back along the maternal left, grossly normal amniotic fluid volume. PROCEDURE NOTE: A nonstress test was performed, which was reactive and reassuring. A limited OB ultrasound was performed at the bedside to determine position. Findings noted above. Informed consent was obtained for external cephalic version. Terbutaline 0.25 mg was administered to the patient subcutaneously. RN had difficulties finding heart tones when patient was on her back. heart found on bedside ultrasound and confirmed to be in the 140s. External cephalic version was attempted. Dr. Barrera applied upward pressure to the breech and Madeline applied pressure to the vertex, and we attempted to gently coax the fetus in a forward roll in a counter-clockwise direction. This was attempted twice as Josselin was tolerating the procedure well. Unfortunately it was unsuccessful. heart tones were noted to be normal after the two attempts as well. A 3rd attempt was undertaken in a clockwise position with Joseslin's consent. Very little mobility with clockwise rotation. heart tones were noted to be decreased on ultrasound and the procedure was immediately stopped. NST placed with good heart tone recovery. The patient tolerated the procedure well. monitoring for 1 hour after the procedure was continued to be reassuring. heart rate baseline 140s beats per minute, moderate variability, 15 x 15 accelerations present, no decelerations, category 1. Anesthesia: None Condition: stable Disposition: same day discharge. Returned to clinic for discussion of primary delivery. She has an appointment on February,.
--- NOTE | 2024-02-21 11:59 | PC.OBNST ---
NST Note NST Note Start: 02/21/24 08:26 Freq: ONCE Status: Active Protocol: Document 02/21/24 11:51 WK (Rec: 02/21/24 11:58 WK [id number]) NST Note 1 Para (# of births) 0 EDC 03/13/24 Gestational Age In Weeks & Days 37 Weeks & 0 Days Patient Presented with Complaint(s) of Other Other Complaints Here for ECV- Unsuccessful Reactive Yes RN Emma RNC Date 02/21/24 Reactive Yes RN Peter RN Date 02/21/24 OB NST charge Yes Complete NST Note via Write Note Yes The provider's electronic signature indicates the NST is reactive/appropriate for gestational age. *Note to provider: If an addendum is required, open the patient's chart and click on the note under the Nurse/Allied Health tab.
== END 2024-02-21 11:10 | disposition home or self-care (01) ==
LOC: OB OUT 08:22 → OB 08:22
PROVIDERS: Visit Provider Obstetrics & Gynecology
DX: O32.1XX0 Maternal care for breech presentation, not applicable or unspecified (principal); Z3A.37 37 weeks gestation of pregnancy
CPT/HCPCS: 59025; 59412; G0463; J3105; J7120

== ENCOUNTER 2024-02-22 22:03 | Inpatient (IN) | payer OTHER, SELFPAY ==
[2024-02-22] VITALS (13 sets, daily range): BP systolic 128–148; BP diastolic 77–88; PULSE 67–84; RESP 16; TEMP 36.4–37.1; O2SAT 98–99; BMI 25.3
--- OUTSIDE RECORDS SUMMARY | 2024-02-22 19:36 | XMS_ITS | Data Portability ---
Author Name Unknown Address [address] [place] [address] Phone [phone] Organization [facility], [id number] Address [address] [address] Assessment Encounter Date Assessment Date Assessment LastModified [...] of subsequent test results to the patient [email or web address] Not available 07/31/2023 15:35:33 Plan of Treatment Reminders Order Date Submit Date Provider Last Modified By Organization Details Last Modified Time Details Appointments None recorded. Lab aneuploidy risk, chromosome specific circulating cell free (ccf) DNA, maternal serum [address], [address], [place], [address], 3 09:34:43 venipunctur e [email or web address], [address], [place], [address], 3 12:53:51 CT + NG DNA, PCR, unspecified specimen [address], [address], [place], [address], 3 13:40:44 CBC w/ diff 2022 [facility], [address], [address], [place], [address], 3 13:40:46 culture, urine 2022 [facility], [address], [address], [place], [address], 3 06:55:27 hepatitis C Ab, qual, IA, serum or plasma 2022 [facility], [address], [address], [place], [address], 13:40:42 mumps igg Ab, serum 2022 [facility], [address], [address], [place], [address], 3 06:55:26 HBsAg (hepatitis B surface Ag), serum 2022 [facility], [address], [address], [place], [address], 3 06:55:25 HIV 1+2 AB + HIV 1 p24 Ag, qualitative immunoassay , serum 2022 [facility], [address], [address], [place], [address], 3 12:12:19 type + screen, blood 2022 [facility], [address], [address], [place], [address], 3 12:12:20 RPR (rapid plasma reagin), serum 2022 [facility], [address], [address], [place], [address], 12:12:18 Referral None recorded. Procedures None recorded. Surgeries None recorded. Imaging US, obstetric, 1st trimester 2022 [id number], [address], [address], [place], [address], 16:04:11 Medication Orders Lexapro 20 mg tablet 2022 [email or web address] [id number], [address], [place], [address], 14:39:51 Patient TargetsNo targets recorded. Patient Instructions Encounter Date Encounter Id Patient Instructions Last Modified By Organization Details Last Modified Time 07/31/2023 [id number] Instructions: Avoid illicit drugs/ETOH Discussed Hospital and [...] reagin nonrea ctive nonrea ctive Not Available [address], [place], [address], 08/01/2023 12:12:18 07/31/20 23 07/31/2023 HIV ANTIG EN ANTIB KADEN COMBO CASCA DE HIV antigen antibody combo nonrea ctive nonrea ctive Not Available [address], [place], [address], 08/01/2023 12:12:19 07/31/20 23 07/31/2023 ABO RH TYPE AND SCREE N specimen expiration date [id number] 00 Not Available [address], [place], [address], 08/01/2023 12:12:20 07/31/20 23 07/31/2023 ABO RH TYPE AND SCREE N ABO Rh(D) O pos Not Available [address], [place], [address], 08/01/2023 12:12:20 07/31/20 23 07/31/2023 ABO RH TYPE AND SCREE N antibody screen negati ve negati ve Not Available [address], [place], [address], 08/01/2023 12:12:20 07/31/20 23 07/31/2023 HEPAT ITIS C ANTIB KADEN hepatitis C antibody nonrea ctive nonrea ctive Not Available [address], [place], [address], 08/01/2023 13:40:42 07/31/20 23 07/31/2023 GC/CH LAMYD IA BY PCR chlamydia trachomatis negati ve negati ve Not Available [address], [place], [address], 08/01/2023 13:40:44 07/31/20 23 07/31/2023 GC/CH LAMYD IA BY PCR neisseria gonorrhoeae negati ve negati ve Not Available [address], [place], [address], 08/01/2023 13:40:44 07/31/2007/31/2023 CBC WITH PLATE LETS WBC count 14.2 10e3/ uL 4.0-11 .0 high Not Available [address], [place], [address], 08/01/2023 13:40:45 07/31/20 23 07/31/2023 CBC WITH PLATE LETS RBC count 4.75 10e6/ uL 3.80-5 .20 Not Available [address], [place], [address], 08/01/2023 13:40:45 07/31/2007/31/2023 CBC WITH PLATE LETS hemoglobin 13.9 g/dL 11.7-1 5.7 Not Available [address], [place], [address], 08/01/2023 13:40:45 07/31/2007/31/2023 CBC WITH PLATE LETS hematocrit 41.5 % 35.0-4 7.0 Not Available [address], [place], [address], 08/01/2023 13:40:45 07/31/2007/31/2023 CBC WITH PLATE LETS MCV 87 fL 78-100 Not Available [address], [place], [address], 08/01/2023 13:40:45 07/31/20 23 07/31/2023 CBC WITH PLATE LETS MCH 29.3 pg 26.5-3 3.0 Not Available [address], [place], [address], 08/01/2023 13:40:45 07/31/20 23 07/31/2023 CBC WITH PLATE LETS MCHC 33.5 g/dL 31.5-3 6.5 Not Available [address], [place], [address], 08/01/2023 13:40:45 07/31/20 23 07/31/2023 CBC WITH PLATE LETS RDW 12.9 % 10.0-1 5.0 Not Available [address], [place], [address], 08/01/2023 13:40:45 07/31/2007/31/2023 CBC WITH PLATE LETS platelet count 335 10e3/ uL 150-45 0 Not Available [address], [place], [address], 08/01/2023 13:40:45 07/31/2007/31/2023 CBC WITH PLATE LETS % neutrophils 70 % Not Available [address], [place], [address], 08/01/2023 13:40:45 07/31/2007/31/2023 CBC WITH PLATE LETS % lymphocytes 24 % Not Available [address], [place], [address], 08/01/2023 13:40:45 07/31/2007/31/2023 CBC WITH PLATE LETS % monocytes 5 % Not Available [address], [place], [address], 08/01/2023 13:40:45 07/31/2007/31/2023 CBC WITH PLATE LETS mids % (monos, eos, basos) Not Available [address], [place], [address], 08/01/2023 13:40:45 07/31/2007/31/2023 CBC WITH PLATE LETS % eosinophils 0 % Not Available [address], [place], [address], 08/01/2023 13:40:45 07/31/20 23 07/31/2023 CBC WITH PLATE LETS % basophils 1 % Not Available [address], [place], [address], 08/01/2023 13:40:45 07/31/20 23 07/31/2023 CBC WITH PLATE LETS % immature granulocytes 0 % Not Available [address], [place], [address], 08/01/2023 13:40:45 07/31/20 23 07/31/2023 CBC WITH PLATE LETS NRBCs per 100 WBC 0 /100 <1 Not Available [address], [place], [address], 08/01/2023 13:40:45 07/31/20 23 07/31/2023 CBC WITH PLATE LETS absolute neutrophils 10.0 10e3/ uL 1.6-8. 3 high Not Available [address], [place], [address], 08/01/2023 13:40:45 07/31/20 23 07/31/2023 CBC WITH PLATE LETS absolute lymphocytes 3.5 10e3/ uL 0.8-5. 3 Not Available [address], [place], [address], 08/01/2023 13:40:45 07/31/20 23 07/31/2023 CBC WITH PLATE LETS absolute monocytes 0.7 10e3/ uL 0.0-1. 3 Not Available [address], [place], [address], 08/01/2023 13:40:45 07/31/20 23 07/31/2023 CBC WITH PLATE LETS mids absolute (monos, eos, basos) Not Available [address], [place], [address], 08/01/2023 13:40:45 07/31/20 23 07/31/2023 CBC WITH PLATE LETS absolute eosinophils 0.0 10e3/ uL 0.0-0. 7 Not Available [address], [place], [address], 08/01/2023 13:40:45 07/31/20 23 07/31/2023 CBC WITH PLATE LETS absolute basophils 0.1 10e3/ uL 0.0-0. 2 Not Available [address], [place], [address], 08/01/2023 13:40:45 07/31/20 23 07/31/2023 CBC WITH PLATE LETS absolute immature granulocytes 0.0 10e3/ uL <=0.4 Not Available [address], [place], [address], 08/01/2023 13:40:45 07/31/20 23 07/31/2023 CBC WITH PLATE LETS absolute NRBCs 0.0 10e3/ uL Not Available [address], [place], [address], 08/01/2023 13:40:45 07/31/20 23 07/31/2023 HEPAT ITIS B SURFA CE ANTIG EN hepatitis B surface antigen nonrea ctive nonrea ctive Not Available [address], [place], [address], 08/02/2023 06:55:25 07/31/20 23 07/31/2023 RUBEL LA ANTIB KADEN IGG QUANT rubella antibody IgG quant 9.56 index <0.90 Not Available [address], [place], [address], 08/02/2023 06:55:26 07/31/20 23 07/31/2023 RUBEL LA ANTIB KADEN IGG QUANT rubella antibody IgG positi ve Not Available [facility] [address] [facility] [address], [place], [address], 08/02/2023 06:55:26 07/31/20 23 07/31/2023 URINE CULTU RE urine culture see result s below Not Available [facility] [address], [place], [address], 08/02/2023 06:55:27 07/31/20 23 07/31/2023 US, obste tric, 1st trime ster No observ ation record ed. [email or web address] Maria Del Rosario [address], [place], [address], 08/02/2023 11:30:55 Result Notes None recorded. Problems Name Status Onset Date Resolution Date Notes Provider Name and Address Organization Details Recorded Time Completed 023 10/30/2023 Tayler Greenfiel d null, [place] - [facility] 4 10:32:39 Administration of influenza vaccine Completed 023 Tayler Greenfiel d null, [place] [facility] 4 10:32:35 Generalized anxiety disorder Completed stable on lexapro Tayler Greenfiel d null, [place] [facility] 4 10:32:35 Problem Notes None recorded. Procedures Surgical History Date Name Laterality Status Provider Name and Address Organization Details Recorded Time 3 extraction of wisdom tooth completed Belen Pond null, [place] - [facility] 07/31/2023 14:08:03 Imaging Results Imaging Date Name Status LastModified by Organiz ation Details LastModified Time 07/31/2023 US, obstetric, 1st trimester completed [email or web address] Maria Del Rosario [address], [place], [address], 08/02/2023 11:30:55 Procedure Notes None recorded. Medical [...] Address Organization Details Last Updated DateTime 07/31/2023 72444.41 573 g 20.8 kg/m2 167.64 cm 102 mm[Hg] 60 mm[Hg] Belenyamile Butchergoldy [facility] 14:19:02 Date Recorded Body weight Systolic blood pressure Diastolic blood pressure Provider Name and Address Organization Details Last Updated DateTime 08/20/2023 66211.4157 3 g 108 mm[Hg] 70 mm[Hg] [facility] 08/20/2023 11:05:25 Date Recorded Body weight Systolic blood pressure Diastolic blood pressure Provider Name and Address Organization Details Last Updated DateTime 09/17/2023 68066.3189 44 g 100 mm[Hg] 72 mm[Hg] [facility] 09/17/2023 11:13:04 Social History Question Answer Notes [...] preservative free, quadrivalent 07/31/2023 completed KELVIN CALVILLO- [address] [facility],[address], [place], [address], [facility] 07/31/2023 15:30:45 Past Encounters Encounter ID Performer Location Encounter Start Date Encounter Closed Date Diagnosis/Indication Diagnosis SNOMED-CT Code [id number] HERNAN PINTO MD [id number] [facility] [address] [facility], [address] [place] [address] 07/31/2023 13:22:22 07/31/2023 14:04:18 Finding of viability of [id number] Gestation period, 7 weeks [id number] NELIA DE LA PAZ RAYNA- [id number] [facility] [address] [facility], [address] [place] [address] 07/31/2023 14:03:20 07/31/2023 15:45:03 Routine care 299756793 Generalize d anxiety disorder 26859985 Intrauteri ne 42846339 Administra tion of influenza vaccine [id number] [place] RAYNA [id number] [facility] [address] [facility], [address] [address] 08/20/2023 10:55:35 08/20/2023 11:35:15 Gestation period, 10 weeks 03481979 screening [id number] [id number] [place] [facility] [place] [address] [facility], [address] [address] 09/17/2023 10:54:08 09/17/2023 11:26:26 Gestation period, 14 weeks 19099776 Health Concerns Section Related Observation LastModified by Organization Detai ls LastModified Time None Recorded Concern Status LastModified by Organization Details LastModified Time None Recorded Advance Directives Directive None Recorded Payers Encounter Date Sequence Insurance Name Policy Number Policy Marie Covered Member ID Marie Member ID Guarantor Name 09/17/2023 1 PREFERREDONE (PPO) [id number] [employer] [id number] Josselin Pride 08/20/2023 1 PREFERREDONE (PPO) [id number] [employer] [id number] Josselin Pride 07/31/2023 1 PREFERREDONE (PPO) [id number] [employer] [id number] Josselin Pride 07/31/2023 1 PREFERREDONE (PPO) [id number] [employer] [id number] Josselin Villagomez Pride Notes Date Note Type [...] is based on her ultrasound. She is 6yov4semv gestation today. Since her LMP she has [...] discussed with patient. NELIA DE LA PAZ, [facility] [address] [facility],[address], [place], [address], [place] [facility] 07/31/2023 15:40:08 OBGyn Episode Ob Episode Information Episode Created Date Number of Fetuses Patient Bloodtype Patient rh Status Prepregnancy Weight lbs Domestic Partner Domestic Partner Phone Father Name Try Out Person Status 07/31/20 23 1 O Positive 129 Mele Camacho CLOSED Fetus Data First Name Last Name Admitted to NICU Weight (g) Sex Living Outcome Pediatric Complications Fetus ID Race Codes Race Delivery Type [id number] Problems Problem Notes unsure LMP, dated by ultraso undspouse is ED physicianflu shot done, covid booster discussed Problem Name Start Date End Date Resolution Snomed Code Not e Administration of influenza vaccine 07/31/2023 [id number] Generalized anxiety disorder [id number] stable on lexap ro Heriberto Calculation Initial [...] Date Ultra Sound Latest Days Gestation 0 [email or web address] 07/31/2023 03/13/20 24 0 Pre-paddy Flowsheet Flowsheet [...] And Infection History Question Response Note Thalassemia (English, Kazakh, Mediterranean, Or Background): MCV < 80 false [...] 1 Diabetes , PKU) false Kareem-Sachs (eg, Confucianism, Cajun, Macedonian-[place]) f alse Other Infection History false White's Chorea false Cystic Fibrosis false Recurrent Loss, [...] Comments Patient transferr ed on 10/19/23 to [facility] - Billed Antepartu m visits per guideline s. Discharge Information Feeding Method Contraceptive Method Maternal HG B and HCT Levels
[2024-02-22] MEDS: LACTATED RINGERS 1000 ML 1,000 ML IV ×2 (20:00→21:19)
[2024-02-22 20:05] LABS: Amnisure Rom* POSITIVE
[2024-02-22 20:07] LABS: Basophils Percent Auto 0.2 % (0.0-3.0); Eosinophils Percent Auto 0.5 % (0.0-7.0); Hematocrit 33.9 % (33.0-51.0); Hemoglobin* 11.3 gm/dL (12.0-16.0); Immature Granulocytes Pct Auto 0.5 %; Mean Corpuscular HGB Conc 33 gm/dL (32-36); Mean Corpuscular Hemoglobin 27 pg (26-34); Mean Corpuscular Volume 82 fL (80-100); Monocytes Percent Auto 7.2 % (0.0-11.0); Neutrophils Percent Auto 68.6 % (42.0-72.0); Platelet Count* 259 K/uL (140-440); RDW Coefficient of Variation % 13.1 % (11.5-15.5); Red Blood Count 4.14 m/uL (4.00-5.20); White Blood Count* 13.66 K/uL (4.50-11.00)
[2024-02-22 20:11] LABS: Slide Review Reflex No
[2024-02-22] MEDS: AMPICILLIN 2 GM in 0.9 % SODIUM CHLORIDE Mini-bag 100 ML IVPB (20:13)
--- NOTE | 2024-02-22 20:44 | P.OBHP_ITS ---
OB - H&P: HPI Labor/Induction History of Present Illness Date Seen: 02/22/24 Chief Complaint: The patient is a 29 year old 1 para 0 at 37 weeks, 1 day gestation by first-trimester ultrasound with uncertain LMP, who presents with STEFANIE 03/13/24, who had SROM at 5:30 PM today. She is not having any contractions. She has fetus in breech presentation, and is status post failed attempt at external cephalic version yesterday. Chief complaint: OB Specific Issues/Plans . Spouse: Mele Baby: Girl. Varicella zoster antibody next visit: Immune Transfer OB at 20 weeks and 4 days : Mele Camacho, ED physician/[facility] 1. Mild renal pelviectasis, left. 4 mm. * Follow-up ultrasound 32 weeks 01/21/2024: Pelviectasis resolved 3mm. 2. Anxiety, doing well on Lexapro 20 mg 3. Breech, with unsuccessful ECV 02/21/24 labs 07/31/2023: O positive, negative antibody screen, hemoglobin 13.9, platelets 335, rubella immune, RPR nonreactive, hepatitis-B surface antigen nonreactive, HIV nonre active, gonorrhea and Chlamydia negative, negative urine culture, negative hep C Imaging 07/31/2023: Intrauterine at 7 weeks 5 days with the STEFANIE 03/13/2024 10/29/2023: Breech, posterior placenta, three-vessel cord, normal fluid, EFW 40%, left renal pelvis 4 mm 01/21/2024: Yaya breech position, normal fluid, left renal pelvis measuring 3.2 mm, normal Genetic screening 08/20/2023: Maternity T21, negative. Girl! O Positive: No rhogam Flu:07/31/2023 Tdap: 12/31/23 Meds Home Medications and Allergies Home Medications Medication Instructions Recorded Confirmed Type escitalopram oxalate 20 mg tablet 20 mg PO QDAY 10/29/23 02/22/24 History (Lexapro) 103-folic acid 400 1 tab PO .400 12/03/23 02/22/24 History mcg-omeg3 32.5 mg-dha-fish oil chew tablet ( with DHA and Folic Acid) Allergies Allergy/AdvReac Type Severity Reaction Status Date / Time No Known Drug Allergies Allergy Verified 02/22/24 19:51 OB - H&P: Exam Physical Exam: Vital signs: Temp Pulse Resp BP Pulse Ox 98 F 81 16 136/87 99 02/22/24 20:00 02/22/24 20:02 02/22/24 20:00 02/22/24 20:02 02/22/24 20:03 Narrative: Physical exam: General: No acute distress Psych: Alert and oriented x3, full affect HEENT: Normocephalic, atraumatic Neck: No cervical adenopathy, no thyromegaly Heart: Regular rate and rhythm, no murmur rub or gallop Lungs: Clear to auscultation bilaterally Abdomen: Soft, nontender, gravid, breech, confirmed on bedside ultrasound Lower extremities: No edema or erythema Pelvic exam: Deferred, though copious clear fluid noted from vagina OB - Results Labs Labs: Short CBC 02/22/24 Range/Units 20:00 WBC 13.66 H (4.50-11.00) K/uL Hgb 11.3 L (12.0-16.0) gm/dL Hct 33.9 (33.0-51.0) % Plt Count 259 (140-440) K/uL AmniSure positive tracing: Baseline 140, accelerations present, no decelerations, moderate variability. No contractions. OB - Problem Based A/P Additional Plan (1) Breech position of fetus: Status: Acute Plan: 37 weeks, 1 day gestation in otherwise uncomplicated . Fetus confirmed breech on bedside ultrasound. Rupture membranes confirmed. (2) : Status: Acute Plan Plan is for primary delivery. We discussed risks of procedure, including bleeding/hemorrhage, infection, damage to internal organs, thromboembolism, uterine scarring, as well as likely postoperative restrictions and precautions. Consent form was reviewed with and signed by patient. She has received ampicillin for GBS prophylaxis, but will receive cefazolin for preoperative prophylaxis. Delivery/Labor/Induction Plan Plan: Section
[2024-02-22] MEDS: AZITHROMYCIN 500 MG in 0.9 % SODIUM CHLORIDE 250 ml 250 ML 255 MG IVPB (21:34)
[2024-02-22] MEDS: CEFAZOLIN 2 GM INJ IVP (21:48)
[2024-02-22] MEDS: LACTATED RINGERS 1000 ML 1,000 ML 100 ML IV (22:27)
[2024-02-22] MEDS: KETOROLAC 30 MG/ML inj IVP (22:28)
--- NOTE | 2024-02-22 22:51 | PM.OBPRCCS ---
Procedure Date of procedure: 02/22/24 Pre-op diagnosis: 37 weeks, 1 day gestation. Zara breech presentation. Premature rupture of membranes at term. Post-op diagnosis: same Procedure Done: Global Will [facility] bill your pro fee for this procedure?: Yes Blood Loss Measurement Type: QBL (389) Bakri Used: No IV fluids (mL): 2,300 Urine Output (mL): 100 Surgeon: Annika Barrera MD Anesthesia Type: Spinal Findings: 1. Female , zara breech presentation with sacrum anterior, Apgars of a 6, 7, and 9, weight 2615 g = 5 lb, 12 oz 2. Normal appearance of uterus, bilateral tubes and ovaries. Procedure Name: Primary low-transverse Procedure Description: Patient was taken to the operating room with IV running. She received cefazolin and azithromycin in preoperative prophylaxis. Spinal anesthesia was administered. Coyle catheter was inserted. She was prepped and draped in the usual sterile fashion. Anesthesia was tested and found to be adequate. A low-transverse skin incision was made with a scalpel and carried through to the underlying layer of fascia with the scalpel. The subcutaneous fat was dissected bluntly off the underlying fascia. The fascia was nicked in the midline with a scalpel, and this incision was extended laterally with scissors. The rectus muscles were in the midline. Peritoneum was identified and entered bluntly. Bovie was used to widen this opening laterally. Aaron O retractor was inserted and tightened down, providing excellent visualization of the lower uterine segment. The bladder reflection was found to be well below the planned site for hysterotomy. Low-transverse uterine incision was made with a scalpel. Incision was widened bluntly. The 's breech was grasped through the hysterotomy, but I was initially unable to bring this through the hysterotomy. The incision was extended upwards in left words from the hysterotomy by approximately 1 cm, which resulted in successful delivery of the breech. The incision did not leave the lower uterine segment. The hips were delivered through the hysterotomy, followed by both legs, then each arm after rotating the infant's body to sweep the arm across the chest. Finally, the head was delivered, maintaining a neutral position. Cord was clamped and cut. was handed off to attending pediatric provider. The placenta was delivered with gentle traction on the cord. The uterus was exteriorized and cleaned of all clots and debris with the dry lap pad. The hysterotomy was reapproximated with 0 Vicryl in a running, locked fashion. Second layer of the same suture was used in imbricating fashion to obtain hemostasis. The adnexa were examined and noted to be normal in appearance, though the ovaries were enlarged bilaterally. The cul-de-sac and gutters were cleansed with dampened laparotomy sponge, removing any further clots and debris. The uterus was returned to the abdomen. The hysterotomy was reexamined and found to be hemostatic. The Aaron O retractor was removed. The peritoneum was reapproximated with 2 0 Vicryl in a running fashion. The rectus muscles were examined and found to be hemostatic. The fascia was reapproximated with 0 Vicryl in a running fashion. Subcutaneous fat was irrigated and Bovie used on oozing vessels. The subcutaneous fat was reapproximated with 2 0 plain gut suture in an interrupted fashion. The skin was closed with a subcuticular stitch of 4-0 Monocryl. Surgical glue was applied above this. Patient tolerated procedure well was taken to recovery area in stable condition. Complications: none Pathology: specimen obtained, sent to pathology (placenta) Surgery Debrief Performed: Yes Surgery Debrief Comment: Verbal request made to send placenta to pathology
--- NOTE | 2024-02-22 23:33 | P.NB_ITS ---
Nerve Block Nerve Block Time Seen by Provider: 23:00 Date Seen: 02/22/24 Type of block requested by surgeon for post-operative analgesia: TAP Side: bilateral Time out performed: Yes Verification of patient name: Yes Verification of date of : Yes Site marking: site marked Name of person performing procedure: Sameer Kaitlin Continuous monitoring Was continuous monitoring of O2 sat, B/P, secured entrance monitor, recorded every 15 minutes?: Yes Procedure Checklist: sterile prep, needles and gloves Ultrasound guided. Images saved: Yes Medications given in 5ml increments after negative aspiration: Marcaine %: 0.25 mL: 30 Needle gauge: 21 and Exparel mL: 10 Needle gauge: 21 Patient tolerated procedure well: Yes Additional comments: Injected in 5mL increments after negative aspiration Block Charges Block Charge (with Pro Fee): TAP Bilateral Use of Ultrasound Machine for Block: Yes- US Guidance/pain block
--- NOTE | 2024-02-22 23:33 | W.ANESCHARGE ---
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
[2024-02-23] VITALS (33 sets, daily range): BP systolic 114–145; BP diastolic 67–86; PULSE 61–99; RESP 16; TEMP 36.7–36.9; O2SAT 98–99
[2024-02-23] MEDS: ACETAMINOPHEN 500 MG TABLET 1000 MG PO ×3 (00:48→20:26)
[2024-02-23] MEDS: KETOROLAC 30 MG/ML inj IVP ×4 (04:35→23:02)
[2024-02-23 07:18] LABS: Hemoglobin* 10.2 gm/dL (12.0-16.0)
[2024-02-23] MEDS: DOCUSATE SODIUM 100 MG CAPSULE PO (07:53)
--- NOTE | 2024-02-23 08:27 | P.OBPN_ITS ---
OB - PN:Subj Subjective Time Seen by Provider: 07:45 Date Seen: 02/23/24 Narrative: Ms. Pride is a 29yo seen on POD1 from primary delivery. was complicated by breech malpresentation (unsuccessful ECV), PROM and anxiety. She had an unremarkable delivery and course of present. Josselin notes she is feeling well this morning. Her pain is well controlled on NSAIDs and Tylenol. She has yet to ambulate secondary to pain with ambulation at times, Coyle catheter remains in place. She is tolerating p.o. solids and liquids without nausea or vomiting. Denies dizziness or lightheadedness, fevers/chills. Lochia is appropriate. Josselin is working on with some difficulty, secondary to sleepiness in baby girl. RNs are providing support, where I encouraged her to consider hand expression and or pumping while she works on direct . Josselin had several mild range blood pressures overnight. Denies headache, vision changes or right upper quadrant pain. OB - PN: Obj Exam Physical Exam: Vital signs: Temp Pulse Resp BP Pulse Ox O2 Del Method 98.2 F 70 16 114/67 98 Room Air 02/23/24 07:27 02/23/24 07:27 02/23/24 07:27 02/23/24 07:27 02/23/24 07:27 02/23/24 07:27 Narrative: General: Alert and oriented, in no acute distress Abdomen: Soft, nondistended. Mild tenderness to palpation in the lower abdomen, consistent with postop state. No rebound or guarding. Incision dressing is on, clean and dry. Extremities: SCDs in place. Calves are nonswollen, nontender and non erythematous. Psych: Appropriate mood and affect Urinary Catheter Management: Urethral: Cath placed during this visit: yes Urethral indwelling: Yes Reason for continuing: prolonged immobilization Insertion date: 02/22/24 Insertion time: 21:50 OB - PN: Obj Data Labs Labs: Laboratory Results - last 24 hr 02/22/24 02/22/24 02/22/24 19:40 19:56 20:00 WBC 13.66 H RBC 4.14 Hgb 11.3 L Hct 33.9 MCV 82 MCH 27 MCHC 33 RDW Coeff of Daina 13.1 Plt Count 259 Neut % (Auto) 68.6 Lymph % (Auto) 23.0 [place] % (Auto) 7.2 Eos % (Auto) 0.5 Baso % (Auto) 0.2 Neut # (Auto) 9.40 H Lymph # (Auto) 3.10 H [place] # (Auto) 1.00 H Eos # (Auto) 0.10 Baso # (Auto) 0.00 Abs Immat Gran (auto) 0.10 Imm/Tot Granulo (auto) 0.5 Membrane Rupture POSITIVE Blood Type O Positive Antibody Screen NEGATIVE 02/23/24 06:53 WBC RBC Hgb 10.2 L Hct MCV MCH MCHC RDW Coeff of Daina Plt Count Neut % (Auto) Lymph % (Auto) [place] % (Auto) Eos % (Auto) Baso % (Auto) Neut # (Auto) Lymph # (Auto) [place] # (Auto) Eos # (Auto) Baso # (Auto) Abs Immat Gran (auto) Imm/Tot Granulo (auto) Membrane Rupture Blood Type Antibody Screen OB - PN: A/P Delivery Assessment and Plan (1) Breech position of fetus: Status: Acute (2) : Status: Acute (3) Elevated BP without diagnosis of hypertension: Status: Acute Plan Ms. Pride is a 29yo seen on POD1 from primary delivery in the setting of breech malpresentation and PROM. was otherwise complicated by anxiety. Josselin is feeling well this morning, making appropriate postop progress. E ncouraged her to work on ambulation this morning, where we reviewed her available pain regimen in the use of an abdominal binder. Once ambulating, explained that we can remove her Coyle catheter and will then assess for spontaneous voiding. She expressed understanding and is motivated to ambulate today. We discussed , pumping and an expression since baby girl fatigues easily at the breast. Encouraged her to utilize her resources in the RNs and support. Finally, she had several asymptomatic mild range blood pressures overnight. If she were to have another today she would meet criteria for hypertensive disorder of , where we would complete preeclampsia labs. No headache, vision changes right upper quadrant pain. All questions answered. Disposition is to remain inpatient today.
[2024-02-23] MEDS: SODIUM CHLORIDE 0.9 % (FLUSH) 10 ML SYRINGE IVF ×3 (10:36→23:03)
[2024-02-24] VITALS: PULSE 85; RESP 16; TEMP 36.8; O2SAT 99
[2024-02-24 04:30] VITALS: BP 129/85
--- NOTE | 2024-02-24 07:08 | PM.OBPNVD1 ---
OB - PN:Subj Subjective Time Seen by Provider: 07:08 Date Seen: 02/24/24 Interval history: Ms. Pride is a 29yo seen on POD2 from primary delivery. was complicated by breech malpresentation (unsuccessful ECV), PROM and anxiety. She had an unremarkable delivery and course of present. She did have elevated BP without a diagnosis of HTN on the early hours of POD1, none since. Josselin notes she is feeling well this morning. Her pain is well controlled on NSAIDs and Tylenol, has not required oxycodone. She is tolerating p.o. solids and liquids without nausea or vomiting. She is ambulating without difficulty. Void spontaneously, passing flatus, no bowel movement yet. Denies dizziness or lightheadedness, fevers/chills. Lochia is appropriate. Josselin continues to work on , hand expression and formula supplementation. RN support ongoing. OB - PN: Obj Exam Physical Exam: Vital signs: Temp Pulse Resp BP Pulse Ox O2 Del Method 98.3 F 85 16 129/85 99 Room Air 02/24/24 00:00 02/24/24 00:00 02/24/24 00:00 02/24/24 04:30 02/24/24 00:00 02/24/24 00:00 Narrative: General: Alert and oriented, in no acute distress Abdomen: Soft, nondistended. Mild tenderness to palpation in the lower abdomen, consistent with postop state. No rebound or guarding. Incision dressing removed. Incision is well approximated with no erythema, ecchymosis or drainage. Psych: Appropriate mood and affect Urinary Catheter Management: Urethral: Cath placed during this visit: yes Urethral indwelling: Yes Reason for continuing: surgical procedure Insertion date: 02/22/24 Insertion time: 21:50 OB - PN: Obj Data Labs Labs: Laboratory Results - last 24 hr 02/23/24 06:53 Hgb 10.2 L OB - PN: A/P Delivery Assessment and Plan (1) Breech position of fetus: Status: Acute (2) : Status: Acute (3) Elevated BP without diagnosis of hypertension: Status: Acute Plan Ms. Pride is a 29yo seen on POD2 from primary delivery in the setting of breech malpresentation and PROM. was otherwise complicated by anxiety and elevated BP but not meeting criteria for HTN . Josselin is feeling well and meeting all appropriate milestones for dismissal physically. She continues to work on feeding support of baby girl, using a combination of direct breast, hand expression donor breast milk and formula. RN support ongoing, discussed may be available tomorrow. She is potentially interested in discharge to home today if baby qualifies. Plan to see how the day goes and await Peds rounding. She would be medically appropriate for dismissal to home today, but is certainly entitled to another night in the hospital given her late . Will reassess this afternoon. If she were to discharge, discharge instructions including to an 6 week follow-up and return precautions were reinforced.
[2024-02-24 07:39] VITALS: BP 147/99; PULSE 77; RESP 16; TEMP 36.8; O2SAT 99
[2024-02-24] MEDS: IBUPROFEN 600 MG TABLET PO ×3 (07:42→20:00)
[2024-02-24 08:54] LABS: Basophils Percent Auto 0.2 % (0.0-3.0); Eosinophils Percent Auto 0.5 % (0.0-7.0); Hemoglobin* 11.3 gm/dL (12.0-16.0); Immature Granulocytes Pct Auto 0.7 %; Lymphocytes Percent Auto 18.7 % (20-44); Mean Corpuscular HGB Conc 32 gm/dL (32-36); Mean Corpuscular Hemoglobin 27 pg (26-34); Mean Corpuscular Volume 84 fL (80-100); Neutrophils Percent Auto 75.9 % (42.0-72.0); Platelet Count* 254 K/uL (140-440); RDW Coefficient of Variation % 13.2 % (11.5-15.5); Red Blood Count 4.19 m/uL (4.00-5.20); White Blood Count* 15.48 K/uL (4.50-11.00)
[2024-02-24 08:57] LABS: Slide Review Reflex No
[2024-02-24 09:16] LABS: Creatinine* 0.6 mg/dL (0.5-1.5); Est. Creatinine Clearance* 127.18; Estimated Glomerular Filt Rate 123 ml/min
[2024-02-24 09:17] LABS: Alanine Aminotransferase* 16 U/L (4-35); Aspartate Amino Transferase* 35 U/L (12-35)
[2024-02-24] MEDS: ACETAMINOPHEN 500 MG TABLET 1000 MG PO ×3 (10:16→21:50)
[2024-02-24] MEDS: DOCUSATE SODIUM 100 MG CAPSULE PO (10:16)
[2024-02-24 12:30] VITALS: BP 142/92; PULSE 80; RESP 16; O2SAT 99
[2024-02-24 12:36] LABS: Rapid Plasma Reagin (RPR) Non Reactive (Non Reactive)
[2024-02-24] MEDS: SIMETHICONE 80 MG TAB.CHEW PO (13:15)
[2024-02-24 16:30] VITALS: BP 129/81; PULSE 68; RESP 16; TEMP 37; O2SAT 98
[2024-02-24] MEDS: NIFEdipine 30 MG TAB.ER.24 PO (18:45)
[2024-02-24 20:03] VITALS: BP 132/73; PULSE 74; RESP 16; TEMP 36.7
[2024-02-25 00:10] VITALS: BP 128/76; PULSE 88; RESP 16; TEMP 36.5
[2024-02-25] MEDS: IBUPROFEN 600 MG TABLET PO ×2 (03:17→08:55)
[2024-02-25] MEDS: ACETAMINOPHEN 500 MG TABLET 1000 MG PO ×2 (06:18→12:33)
[2024-02-25 06:23] VITALS: BP 123/78; PULSE 75; RESP 16; TEMP 36.4
--- NOTE | 2024-02-25 07:57 | PM.OBDSVD1 ---
DS: Providers Provider Date Seen: 02/25/24 Date of admission: 02/22/24 22:03 Primary care physician: Not a Local Provider Admitting Clinician: Annika Barrera MD Attending Physician on discharge: Beulah Donovan APRN, CNM DS: Diagnosis Discharge Diagnosis (1) care and examination immediately after delivery: Status: Acute (2) Gestational hypertension: Status: Acute (3) Lactating mother: Status: Acute (4) Status post section: Status: Acute Exam Narrative: Exam Narrative: GENERAL APPEARANCE:? normal affect, alert, no distress MOOD:? appropriate CHEST:? clear to auscultation HEART:? regular rate and rhythm ABDOMEN:? soft, non-tender the uterine fundus is at Umbilicus, Midline and is appropriate for the stage of recovery. LOCHIA: scant EXTREMITIES:? normal and trace edema INCISION: Healing well, no surrounding erythema, abnormal induration or discharge Const: Vital Signs, click to edit/add: Vital Signs - 24 hr 02/24/24 12:30 02/24/24 16:30 02/24/24 20:03 Temperature 98.6 F 98.0 F Pulse Rate [Pulse Oximeter] 80 68 74 Respiratory Rate 16 16 16 Blood Pressure [Le ft Arm] 142/92 H 129/81 132/73 Pulse Oximetry 99 98 Oxygen Delivery Me thod Room Air Room Air 02/25/24 00:10 02/25/24 06:23 Temperature 97.7 F 97.5 F L Pulse Rate [Pulse Oximeter] 88 75 Respiratory Rate 16 16 Blood Pressure [Le ft Arm] 128/76 123/78 Pulse Oximetry Oxygen Delivery Me thod Room Air Room Air Documenting provider has reviewed patient's vital signs: yes OB - DS: Summary Hospital Course Hospital Course: Josselin is a 29 y.o. G 1 P 1 who was admitted to [facility] for PROM with breech presentation. ?She had a section that was uncomplicated. The patient feels well. ?The pain is well controlled with current medications. ?She has no new complaints. ?She is breast feeding and reports things are going well. the patient has done well.? Vitals have been stable.? She has remained afebrile.? Has a good appetite, is tolerating a general diet. ?She is voiding without difficulty.? She is passing gas and has [not] had a bowel movement.? She is ambulating and denies any dizziness.? Has small amount of rubra lochia. Problems: GHTN plan: Discharge home with baby. Follow up in 2 weeks and 6 weeks. , may see if needed Hgb 11.3. GHTN diagnosed by elevated BP greater than 4 hours apart Labs WNL or stable with trending Medications started last evening, continue as prescribed Discharge home with BP cuff if does not already have one Follow up in 3-5 days Call for signs/symptoms of preeclampsia Peripartum Data delivery method: Primary C/S; Non-Labored Laceration description: None Procedures: Procedures Operation Date: 02/22/24 21:15 Actual Procedure Side Surgeon p Section Annika Barrera MD complications: none [place] Gender: Female Infant Discharge Plan: Home Status at Discharge Functional status at discharge: independent ambulation Overall status at discharge: patient is progressing back to baseline Time Spent with Patient Time attestation: Total time spent providing and/or coordinating discharge services: Time spent: Less than 30 minutes Discharge Plan Discharge Disposition: Home, Self-Care Date of Admission: 02/22/24 22:03 Attending Provider on Discharge: Beulah Donovan Primary Care Provider: Provider,Not a Local Condition: Stable Anticipated Discharge Date/Time: 02/25/24 12:00 Discharge Medications: New nifedipine 30 mg Tablet Extended Release 24hr 30 mg PO DAILY Qty: 30 0RF docusate sodium 100 mg Capsule 100 mg PO DAILY Qty: 90 0RF ibuprofen 600 mg Tablet 600 mg PO Q6H PRN (Reason: Pain) Qty: 60 0RF oxycodone 5 mg Tablet 5 - 10 mg PO Q4H PRN (Reason: Pain) Qty: 10 0RF acetaminophen 500 mg Tablet 1,000 mg PO Q6H PRN (Reason: Pain) Qty: 0 0RF Continued omeprazole 10 mg capsule,delayed release(DR/EC) 10 mg PO QDAY Qty: 30 1RF escitalopram oxalate [Lexapro] 20 mg tablet 20 mg PO QDAY with DHA-Folic Acid 400-32.5 mcg-mg tablet,chewable 1 tab PO .400 Discharge Orders: Discharge Order (Routine); Ordered 02/25/24 Ordered By: Beulah Donovan Patient Education: OB Over the Counter Medication Information, OB /Breast Feeding Additional Instructions: Discharge instructions were reviewed with the patient including signs and symptoms of infection and home going medications Lifting Restrictions: 20 pounds for 6 weeks No not submerge incision under water X 2 weeks? Nothing vaginally for 6 weeks: no tampons or intercourse Do not drive while taking narcotic pain medication(s) Off Work or School for 8 weeks [facility] for a BP check?3-5 days Call with BP greater than or equal to 160/110 2-week visit: incision check, discuss infant feeding concerns, review control options and screen for anxiety/depression. 6-week visit for an annual exam. consultation services are available to all mothers and babies for the first year after delivery.? To make an appointment, please call [phone]. Activity Level: Activity as Tolerated Discharge Diet: Regular Follow Up Appointments: [facility] [Provider Group] Forms: [facility] Corp[facility] Info Instructions
[2024-02-25 07:59] VITALS: BP 138/88; PULSE 67; RESP 16; TEMP 36.6; O2SAT 98
[2024-02-25] MEDS: DOCUSATE SODIUM 100 MG CAPSULE PO (08:55)
[2024-02-25] MEDS: NIFEdipine 30 MG TAB.ER.24 PO (08:56)
[2024-02-25 12:32] VITALS: BP 123/79; PULSE 95; RESP 18; TEMP 36.7; O2SAT 99
== END 2024-02-25 12:50 | disposition home or self-care (01) | DRG 788 ==
LOC: OB OUT 22:04 → OB 22:04
PROVIDERS: Obstetrics & Gynecology; Admitting Provider Obstetrics & Gynecology; Visit Provider Obstetrics & Gynecology
PROC: 10D00Z1 Extraction of Products of Conception, Low, Open Approach (ICD-10-PCS; CPT 59514; principal; 2024-02-22 21:00)
DX: O32.1XX0 Maternal care for breech presentation, not applicable or unspecified (principal); Z3A.37 37 weeks gestation of pregnancy; Z37.0 Single live birth; O13.5 Gestational [pregnancy-induced] hypertension without significant proteinuria, complicating the puerperium; O99.344 Other mental disorders complicating childbirth; F41.9 Anxiety disorder, unspecified; G89.18 Other acute postprocedural pain; O99.824 Streptococcus B carrier state complicating childbirth
CPT/HCPCS: 01961; 36415; 64488; 76942; 82565; 84112; 84450; 84460; 85018; 85025; 86592; 86850; 86900; 86901; 88307; 99140; A9270; C9290; J0290; J0456; J0665; J0690; J1100; J1885; J2274; J2405; J2590; J7050; J7120

== ENCOUNTER 2024-03-19 12:02 | Outpatient (CLI) | payer OTHER, SELFPAY | END 2024-03-19 12:03 | disposition home or self-care (01) | LOC: NFLDREF 12:02 | PROVIDERS: Visit Provider Registered Nurse | DX: F53.0 Postpartum depression (principal) | CPT/HCPCS: 84443 ==

== ENCOUNTER 2025-05-22 15:16 | Outpatient (CLI) | payer OTHER, SELFPAY ==
[2025-05-26 17:08] LABS: HPV Source Cervical
[2025-05-27 16:21] LABS: Pap Test Digital Imaging Done
== END 2025-05-22 15:17 | disposition home or self-care (01) ==
PROVIDERS: PCP Family Medicine; Visit Provider Advanced Practice Midwife
DX: Z12.4 Encounter for screening for malignant neoplasm of cervix (principal); Z11.51 Encounter for screening for human papillomavirus (HPV)
CPT/HCPCS: 87624; 87625; 88141; 88142; 88175

== ENCOUNTER 2025-08-14 13:56 | Outpatient (CLI) | payer OTHER, SELFPAY ==
--- NOTE | 2025-08-14 14:00 | CRLHL7_ITS ---
For Patients: As a result of the Cures Act, medical imaging exams and procedure reports are released immediately into your electronic medical record. You may view this report before your referring provider. If you have questions, please contact your health care provider. OB ULTRASOUND INDICATION: Dating and viability. TECHNIQUE: Real time grayscale imaging of the fetus was performed. Transvaginal. Transvaginal imaging performed to better demonstrate the endometrium and ovaries. LMP: 06/11/2025. STEFANIE by LMP: 03/18/2026. GA: 9 w, 1 d. Previous US: No. CRL: 2.3 cm. 9 w 0 d. STEFANIE: 03/19/2026. FHR: 176 BPM. Gestational sac: 3.9 cm. Appears within normal limits. Yolk sac: 3.6 mm. Appears within normal limits. Right ovary: 5.1 x 1.9 x 3.9 cm. CL. Left ovary: N/V. IMPRESSION: Single living intrauterine measures 9 weeks 0 days and sonographic due date 03/19/2026. Anthony Plata M.D. Diagnostic Radiologist [email or web address] BAL/gurdeep mackenzie/Dictated by: Anthony Plata MD @ 08/14/2025 4:36:00 PM (Electronically Signed)
== END 2025-08-14 13:57 | disposition home or self-care (01) ==
LOC: US 13:57
PROVIDERS: PCP Family Medicine; Visit Provider Advanced Practice Midwife
DX: Z34.91 Encounter for supervision of normal pregnancy, unspecified, first trimester (principal); Z3A.09 9 weeks gestation of pregnancy
CPT/HCPCS: 76817

== ENCOUNTER 2025-08-14 15:30 | Outpatient (CLI) | payer OTHER, SELFPAY ==
[2025-08-14 19:46] LABS: Chlamydia DNA Amplified* NOT DETECTED (No Detected); GC DNA Amplified* NOT DETECTED (No Detected)
== END 2025-08-14 15:31 | disposition home or self-care (01) ==
PROVIDERS: PCP Family Medicine; Visit Provider Registered Nurse
DX: Z34.91 Encounter for supervision of normal pregnancy, unspecified, first trimester (principal)
CPT/HCPCS: 82565; 82570; 83020; 83021; 84156; 84450; 84460; 84520; 85660; 86592; 86703; 86704; 86706; 86762; 86787; 86803; 86850; 86900; 86901; 87086; 87340; 87491; 87591

== ENCOUNTER 2025-09-04 14:33 | Outpatient (CLI) | payer OTHER, SELFPAY | END 2025-09-04 14:34 | disposition home or self-care (01) | LOC: NFLDREF 14:34 | PROVIDERS: PCP Family Medicine; Visit Provider Registered Nurse | DX: R74.01 Elevation of levels of liver transaminase levels (principal) | CPT/HCPCS: 84450 ==